=== PATIENT | male | born 1975 | race Caucasian/White ===

== ENCOUNTER → 2019-03-16 | Day surgery (SDC) | payer BC, MEDICAID ==
[~2019-03-16] MED LIST: Lactated Ringers 1,000 ML IV SCH; Lidocaine 1% 20 ML MDV ONE; Propofol 200 MG/20 ML SDV IV ONE
--- NOTE | 2019-03-16 17:39 | OR ---
DATE OF OPERATION: 03/16/2019 PREOPERATIVE DIAGNOSIS: 1. ONYCHODYSTROPHY. 2. ONYCHOMYCOSIS. POSTOPERATIVE DIAGNOSIS: 1. ONYCHODYSTROPHY. 2. ONYCHOMYCOSIS. SURGEON: Randy Gonzalez MD PROCEDURE: BILATERAL 3RD TOENAIL REMOVALS. ANESTHESIA: MAC with digital nerve block. COMPLICATIONS: None. SPECIMEN: None. FINDINGS: Successful 3rd toenail removal bilaterally. INDICATIONS: The patient is an autistic male at the [address] [place] [address] who had been having 3rd digit pain related to significant onychodystrophy. He is unable to allow removal in a clinic setting and was sent for anesthesia to facilitate toenail removal. DESCRIPTION OF PROCEDURE: The patient was prepped and placed on a supine position. Both toes were prepped and draped in sterile fashion. Digital nerve block with approximately 4 mL of 1% lidocaine on each 3rd toe was accomplished. After anesthesia obtained, the toenails were grasped with nail elevator, removed in usual fashion without any complication. Phenol was used to deaden the nail bed. There were no complications. The patient tolerated the procedure well. Tourniquets were applied for each procedure and removal and minimal bleeding post procedure was seen. Pressure dressings with triple antibiotic ointment were placed over each toe and patient was recovering nicely in the recovery room. DAY/SIA /[id number]
== END ==
LOC: CC.SDS 07:36
PROVIDERS: ATTEND Family Medicine
DX: L60.3 Nail dystrophy (principal); B35.1 Tinea unguium; F84.0 Autistic disorder; Q89.9 Congenital malformation, unspecified; K21.9 Gastro-esophageal reflux disease without esophagitis; E03.9 Hypothyroidism, unspecified; H54.8 Legal blindness, as defined in USA; M81.0 Age-related osteoporosis without current pathological fracture; E23.0 Hypopituitarism; M41.9 Scoliosis, unspecified; G40.909 Epilepsy, unspecified, not intractable, without status epilepticus; Z88.0 Allergy status to penicillin; Z88.1 Allergy status to other antibiotic agents; Z88.2 Allergy status to sulfonamides; Z88.8 Allergy status to other drugs, medicaments and biological substances; Z79.899 Other long term (current) drug therapy
CPT/HCPCS: J2704; J7120

== ENCOUNTER → 2019-12-14 | Day surgery (SDC) | payer MEDICARE, MEDICAID ==
[~2019-12-14] MED LIST changes: +Dexamethasone 4 MG/ML 5 ML MDV IV ONE; -Lactated Ringers 1,000 ML IV SCH; -Lidocaine 1% 20 ML MDV ONE; +Midazolam 1 MG/ML 2 ML SDV IV ONE; +Ondansetron 4 MG/2 ML SDV IV ONE; +Succinylcholine 200 MG/10 ML MDV IV ONE; +ePHEDrine 50 MG/ML SDV IV ONE; +fentaNYL 100 MCG/2 ML SDV IV ONE
[2019-12-14] MEDS: methylPREDNISolone Sodium Succinate 125 MG/2 ML SDV IVPUSH ONE (11:29)
[2019-12-14] MEDS: Lactated Ringers 1,000 ML IV SCH (11:29)
== END ==
LOC: CC.SDS 09:48
PROVIDERS: ATTEND Dentist General Practice
DX: K02.9 Dental caries, unspecified (principal); F84.0 Autistic disorder; Q89.9 Congenital malformation, unspecified; K21.9 Gastro-esophageal reflux disease without esophagitis; E03.9 Hypothyroidism, unspecified; G40.909 Epilepsy, unspecified, not intractable, without status epilepticus; Z88.8 Allergy status to other drugs, medicaments and biological substances; Z88.0 Allergy status to penicillin; Z88.2 Allergy status to sulfonamides; Z79.899 Other long term (current) drug therapy; Z79.890 Hormone replacement therapy; Z98.890 Other specified postprocedural states
CPT/HCPCS: 00170; J0330; J1100; J2250; J2405; J2704; J2930; J3010; J7120

== ENCOUNTER 2021-02-07 09:36 | Emergency (ER) | payer MEDICARE, MEDICAID ==
--- NOTE | 2021-02-07 10:55 | EDM.PDOC ---
ED HPI GENERAL MEDICAL PROBLEM - General Chief Complaint: General Stated Complaint: fever - highest 100, exposure to covid Time Seen by Provider: 02/07/21 10:20 Source of Information: Reports: RN, Other (caregiver) History Limitations: Reports: Altered Mental Status, Other (cognitive ability) - History of Present Illness Onset: Today Duration: Resolved Prior to Arrival Location: Reports: Generalized Associated Symptoms: Reports: No Other Symptoms - Related Data Allergies Allergy/AdvReac Type Severity Reaction Status Date / Time carbamazepine Allergy Cannot Verified 02/07/21 11:28 Remember divalproex sodium Allergy Cannot Verified 02/07/21 11:28 Remember erythromycin base Allergy Cannot Verified 02/07/21 11:28 Remember nitrofurantoin Allergy Cannot Verified 02/07/21 11:28 Remember Penicillins Allergy Cannot Verified 02/07/21 11:28 Remember phenytoin Allergy Cannot Verified 02/07/21 11:28 Remember Sulfa (Sulfonamide Allergy Cannot Verified 02/07/21 11:28 Antibiotics) Remember Home Meds: Home Meds Alendronate Sodium 70 mg PO MO 03/15/19 [History] Clindamycin Phosphate [Cleocin T] 1 applic TP BID 03/15/19 [History] Hydrocortisone Sod Succinate [Solu-CORTEF] 250 mg IM ASDIRECTED PRN 03/15/19 [History] Hydrocortisone [Cortef] 5 mg PO 1200,199903/15/19 [History] Hydrocortisone [Cortef] 10 mg PO QAM 03/15/19 [History] Hydrocortisone [Cortef] 15 mg PO ASDIRECTED PRN 03/15/19 [History] L Acidophil/B Lactis/B Longum [Florajen3] 460 mg PO DAILY 03/15/19 [History] Levothyroxine 75 mcg PO SEYMOUR 03/15/19 [History] Levothyroxine Sodium [Levoxyl] 50 mcg PO MOTUWETHFRSA 03/15/19 [History] Liothyronine Sodium 5 mg PO BID 03/15/19 [History] Loratadine 10 mg PO DAILY 03/15/19 [History] Multivits-Min/FA/K/Lycopene [ Mens 50+ Advanced One Daily] 1 each PO DAILY [History] Omeprazole 20 mg PO DAILY 03/15/19 [History] Sennosides/Docusate Sodium [ Stool Softener-Laxative Tab] 1 each PO DAILY 03/15/19 [History] Cholecalciferol (Vitamin D3) [Delta D3] 10 mcg PO DAILY 12/11/19 [History] Social & Family History - Tobacco Use Tobacco Use Status *Q: Never Tobacco User Second Hand Smoke Exposure: No - Caffeine Use Caffeine Use: Reports: None - Recreational Drug Use Recreational Drug Use: No ED ROS GENERAL - Review of Systems Review Of Systems: Comprehensive ROS is negative, except as noted in HPI. ED EXAM, GENERAL - Physical Exam Exam: See Below Exam Limited By: Other (cognitive ability) General Appearance: Alert, No Apparent Distress Eye Exam: Left Eye: Normal Inspection Ears: Normal External Exam, Normal Canal, Other (cerumen present, no redness) Ear Exam: Bilateral Ear: Other (soft cerumen) Nose: Normal Inspection, Normal Mucosa Throat/Mouth: Normal Inspection, Normal Lips, Normal Teeth, Normal Gums, No Airway Compromise Head: Atraumatic Neck: Normal Inspection, Supple, Non-Tender, Full Range of Motion Respiratory/Chest: No Respiratory Distress, Lungs Clear, Normal Breath Sounds, No Accessory Muscle Use, Chest Non-Tender Cardiovascular: Normal Peripheral Pulses, Regular Rate, Rhythm, No Edema GI/Abdominal: Normal Bowel Sounds, Soft, Non-Tender, No Organomegaly, No Distention Back Exam: Normal Inspection Extremities: Normal Inspection, Non-Tender, Normal Capillary Refill Neurological: Alert, Other (at baseline) Psychiatric: Normal Affect, Normal Mood Skin Exam: Warm, Dry, Intact, Normal Color, No Rash Lymphatic: No Adenopathy Course - Vital Signs Last Recorded V/S: Last Vital Signs Temp 98.7 F 02/07/21 10:16 Pulse 106 H 02/07/21 10:16 Resp 20 02/07/21 10:16 BP 107/60 02/07/21 11:48 Pulse Ox 97 02/07/21 11:48 - Orders/Labs/Meds Labs: Laboratory Tests 02/07/21 Range/Units 09:54 SARS CoV-2 RNA Rapid VIC Negative (NEGATIVE) - Re-Assessments/Exams Free Text/Narrative Re-Assessment/Exam: 02/07/21 13:32 Called pt's mother and discussed plan of care. Pt has protocol for steroids already. Temp was 98.7 while here. Departure - Departure Time of Disposition: 11:00 (4th Shanti) Disposition: DC/Tfer W/I Hosp To Swing 61 Condition: Good Clinical Impression: Elevated temperature - Discharge Information Forms: ED Department Discharge Additional Instructions: Follow the protocol for elevated temperature that you already have. Follow up as needed with his Primary care Provider. Sepsis Event Note (ED) - Focused Exam Vital Signs: Vital Signs Temp Pulse Resp BP Pulse Ox 02/07/21 11:48 107/60 97 02/07/21 10:16 98.7 F 106 H 20 96/52 L
== END 2021-02-07 11:23 | disposition home or self-care (01) ==
LOC: CC.ED 09:36
DX: R50.9 Fever, unspecified (principal); Z20.822 Contact with and (suspected) exposure to COVID-19; Z88.8 Allergy status to other drugs, medicaments and biological substances; Z88.0 Allergy status to penicillin; Z88.2 Allergy status to sulfonamides; Z79.899 Other long term (current) drug therapy
CPT/HCPCS: 87804; 99284; U0002

== ENCOUNTER → 2021-03-12 | Day surgery (SDC) | payer MEDICARE, MEDICAID ==
[~2021-03-12] MED LIST changes: -Dexamethasone 4 MG/ML 5 ML MDV IV ONE; +Hydrocortisone Sodium Succinate 100 MG/2 ML SDV IVPUSH ONE; +Lactated Ringers 1,000 ML IV SCH; +Lidocaine 2% 5 ML SDV ONE; -Midazolam 1 MG/ML 2 ML SDV IV ONE; +Midazolam 1 MG/ML 2 ML SDV ONE; -Ondansetron 4 MG/2 ML SDV IV ONE; +Ondansetron 4 MG/2 ML SDV ONE; -Propofol 200 MG/20 ML SDV IV ONE; +Propofol 200 MG/20 ML SDV ONE; -Succinylcholine 200 MG/10 ML MDV IV ONE; +Succinylcholine 200 MG/10 ML MDV ONE; -ePHEDrine 50 MG/ML SDV IV ONE; +ePHEDrine 50 MG/ML SDV ONE; -fentaNYL 100 MCG/2 ML SDV IV ONE; +fentaNYL 100 MCG/2 ML SDV ONE
== END ==
LOC: CC.SDS 06:40
PROVIDERS: ATTEND Dentist General Practice
DX: K02.9 Dental caries, unspecified (principal); K21.9 Gastro-esophageal reflux disease without esophagitis; E29.1 Testicular hypofunction; E03.9 Hypothyroidism, unspecified; M81.0 Age-related osteoporosis without current pathological fracture; E27.49 Other adrenocortical insufficiency; G40.909 Epilepsy, unspecified, not intractable, without status epilepticus; M41.9 Scoliosis, unspecified; E23.0 Hypopituitarism; Z88.8 Allergy status to other drugs, medicaments and biological substances; Z88.2 Allergy status to sulfonamides; Z79.899 Other long term (current) drug therapy; Z79.890 Hormone replacement therapy; Z98.890 Other specified postprocedural states
CPT/HCPCS: 00170; J0330; J1720; J2250; J2405; J2704; J3010; J7120

== ENCOUNTER 2022-03-29 09:25 | Emergency (ER) | payer MEDICARE, MEDICAID ==
[2022-03-29] MEDS ORDERED: Ondansetron 4 MG Tab.DIS PO ONE (09:53)
[2022-03-29] MEDS ORDERED: HYDROCORTISONE 250 MG/2 ML IM ONE (10:00)
[2022-03-29] MEDS ORDERED: Sodium Chloride 0.9% 1,000 ML IV ONE (10:05)
[2022-03-29] MEDS ORDERED: Sodium Chloride 0.9% 10 ML Syringe FLUSH PRN (10:05)
== END 2022-03-29 12:15 | disposition home or self-care (01) ==
LOC: CC.ED 09:25
DX: A08.4 Viral intestinal infection, unspecified (principal); E23.0 Hypopituitarism; E27.40 Unspecified adrenocortical insufficiency; Z88.8 Allergy status to other drugs, medicaments and biological substances; Z88.1 Allergy status to other antibiotic agents; Z88.0 Allergy status to penicillin; Z88.2 Allergy status to sulfonamides; Z79.899 Other long term (current) drug therapy
CPT/HCPCS: 36415; 80053; 85025; 96360; 99284; 99284-25; A9270-GY; J7030

== ENCOUNTER → 2022-05-20 | Day surgery (SDC) | payer MEDICARE, MEDICAID ==
[~2022-05-20] MED LIST changes: +Dexamethasone 4 MG/ML SDV ONE; -Hydrocortisone Sodium Succinate 100 MG/2 ML SDV IVPUSH ONE; -Lactated Ringers 1,000 ML IV SCH; +Lidocaine 2% 20 ML MDV ONE; -Lidocaine 2% 5 ML SDV ONE; +Metoclopramide 10 MG/2 ML SDV ONE; +Phenylephrine 1% 10 MG/ML SDV ONE; -ePHEDrine 50 MG/ML SDV ONE; -fentaNYL 100 MCG/2 ML SDV ONE; +fentaNYL 50 MCG/ML SDV ONE
[2022-05-20] MEDS: Lactated Ringers 1,000 ML IV SCH (07:20)
[2022-05-20] MEDS: Hydrocortisone Sodium Succinate 100 MG/2 ML SDV IVPUSH ONE (07:36)
== END ==
LOC: CC.SDS 07:01
PROVIDERS: ATTEND Dentist General Practice
DX: Z01.818 Encounter for other preprocedural examination (principal); K21.9 Gastro-esophageal reflux disease without esophagitis; E78.5 Hyperlipidemia, unspecified; E03.9 Hypothyroidism, unspecified; G40.909 Epilepsy, unspecified, not intractable, without status epilepticus; Z88.1 Allergy status to other antibiotic agents; Z88.2 Allergy status to sulfonamides; Z88.0 Allergy status to penicillin; Z88.8 Allergy status to other drugs, medicaments and biological substances; Z79.890 Hormone replacement therapy; Z79.899 Other long term (current) drug therapy
CPT/HCPCS: 00170; 41899; J0330; J1100; J1720; J2250; J2370; J2405; J2704; J2765; J3010; J7120; J3490

== ENCOUNTER 2023-10-13 06:59 | Day surgery (SDC) | payer MEDICARE, MEDICAID ==
[2023-10-13] MEDS: Lactated Ringers 1,000 ML IV SCH (07:42)
[2023-10-13] MEDS: Hydrocortisone Sodium Succinate 100 MG/2 ML SDV IVPUSH ONE (07:44)
[2023-10-13] MEDS ORDERED: Neostigmine Methylsulfate 10 MG/10 ML MDV ONE (07:50)
[2023-10-13] MEDS ORDERED: fentaNYL 50 MCG/ML SDV ONE ×2 (07:50)
[2023-10-13] MEDS ORDERED: Oxymetazoline 0.05% Nasal Spray 30 ML Bottle ONE (07:50)
[2023-10-13] MEDS ORDERED: Rocuronium 50 MG/5 ML Vial ONE (07:50)
[2023-10-13] MEDS ORDERED: Midazolam 1 MG/ML 2 ML SDV ONE (07:50)
[2023-10-13] MEDS ORDERED: Naloxone 2 MG/2 ML Syringe ONE (07:50)
[2023-10-13] MEDS ORDERED: Lidocaine 2% HCl 6 ML Jel ONE (07:50)
[2023-10-13] MEDS ORDERED: Propofol 200 MG/20 ML SDV ONE (07:50)
[2023-10-13] MEDS ORDERED: Glycopyrrolate 0.2 MG/ML SDV ONE ×4 (07:50)
[2023-10-13] MEDS ORDERED: Ondansetron 4 MG/2 ML SDV ONE (07:50)
== END 2023-10-13 11:00 | disposition home or self-care (01) ==
LOC: CC.SDS 06:59
PROVIDERS: ATTEND Dentist General Practice
DX: K02.9 Dental caries, unspecified (principal); K21.9 Gastro-esophageal reflux disease without esophagitis; E03.9 Hypothyroidism, unspecified; E78.5 Hyperlipidemia, unspecified; Z79.890 Hormone replacement therapy; Z79.899 Other long term (current) drug therapy; Z88.0 Allergy status to penicillin; Z88.2 Allergy status to sulfonamides; Z88.8 Allergy status to other drugs, medicaments and biological substances
CPT/HCPCS: 00170; A9270-GY; J1596; J1720; J2250; J2310; J2405; J2704; J2710; J3010; J3490; J7120

== ENCOUNTER 2024-10-11 06:28 | Day surgery (SDC) | payer MEDICARE, MEDICAID ==
[2024-10-11] MEDS: Lactated Ringers 1,000 ML IV SCH (07:24)
[2024-10-11] MEDS: Hydrocortisone Sodium Succinate 100 MG/2 ML SDV IVPUSH SCH (07:25)
[2024-10-11] MEDS ORDERED: Lidocaine 2% HCl 6 ML Jel ONE (07:50)
[2024-10-11] MEDS ORDERED: Dexamethasone 4 MG/ML SDV ONE (07:50)
[2024-10-11] MEDS ORDERED: fentaNYL 50 MCG/ML SDV ONE (07:50)
[2024-10-11] MEDS ORDERED: Propofol 200 MG/20 ML SDV ONE (07:50)
[2024-10-11] MEDS ORDERED: Ondansetron 4 MG/2 ML SDV ONE (07:50)
[2024-10-11] MEDS ORDERED: Midazolam 1 MG/ML 2 ML SDV ONE (07:50)
== END 2024-10-11 11:23 | disposition home or self-care (01) ==
LOC: CC.SDS 06:28
PROVIDERS: ATTEND Dentist General Practice
DX: K02.9 Dental caries, unspecified (principal); E78.5 Hyperlipidemia, unspecified; E03.9 Hypothyroidism, unspecified; Z88.8 Allergy status to other drugs, medicaments and biological substances; Z88.1 Allergy status to other antibiotic agents; Z88.0 Allergy status to penicillin; Z88.2 Allergy status to sulfonamides; Z86.16 Personal history of COVID-19; Z79.899 Other long term (current) drug therapy; Z79.890 Hormone replacement therapy
CPT/HCPCS: A9270-GY; J1100; J1596; J1720; J2250; J2405; J2704; J3010; J7120